=== PATIENT | male | born 1990 ===

== ENCOUNTER 2019-06-19 20:17 | Emergency (ER) | payer SELFPAY ==
[2019-06-19] MEDS ORDERED: Ketorolac Tromethamine 60 MG/2 ML VIAL ONE (21:02)
--- NOTE | 2019-06-19 21:18 | RAD ---
XR Chest Pa Lat STANDARD HISTORY: Chest pain COMPARISON: None. FINDINGS: Heart size and mediastinum are within normal limits. The lungs are clear of infiltrates. No significant bony findings. IMPRESSION: No active intrathoracic disease.
== END 2019-06-19 21:29 | disposition home or self-care (01) ==
LOC: ERS 20:17
DX: M94.0 Chondrocostal junction syndrome [Tietze] (principal); F17.210 Nicotine dependence, cigarettes, uncomplicated
CPT/HCPCS: 71046; 93005; 96372; J1885